=== PATIENT | female | born 1945 | race Caucasian/White ===

== ENCOUNTER 2021-11-01 09:56 | Day surgery (SDC) | payer MEDICARE ==
[2021-11-01] MEDS ORDERED: fentaNYL 100 MCG/2 ML SDV ONE (10:23)
[2021-11-01] MEDS ORDERED: Propofol 200 MG/20 ML SDV ONE (10:24)
[2021-11-01] MEDS ORDERED: Midazolam 1 MG/ML 2 ML SDV ONE (10:24)
[2021-11-01] MEDS ORDERED: Lactated Ringers 1,000 ML IV SCH (10:30)
== END 2021-11-01 13:49 | disposition home or self-care (01) ==
LOC: JP.SDS 09:56
PROVIDERS: ATTEND Family Medicine
DX: Z12.11 Encounter for screening for malignant neoplasm of colon (principal); I10 Essential (primary) hypertension; E78.5 Hyperlipidemia, unspecified; K58.9 Irritable bowel syndrome, unspecified; Z98.890 Other specified postprocedural states; Z88.0 Allergy status to penicillin; Z88.8 Allergy status to other drugs, medicaments and biological substances; Z79.83 Long term (current) use of bisphosphonates; Z79.891 Long term (current) use of opiate analgesic; Z79.899 Other long term (current) drug therapy; Z20.822 Contact with and (suspected) exposure to COVID-19
CPT/HCPCS: G0121; J2704; J3010; J7120; J2250

== ENCOUNTER 2022-12-20 18:49 | Emergency (ER) | payer MEDICARE | END 2022-12-20 21:04 | disposition home or self-care (01) | LOC: JP.ED 18:49 | DX: S05.11XA Contusion of eyeball and orbital tissues, right eye, initial encounter (principal); S09.90XA Unspecified injury of head, initial encounter; Z88.0 Allergy status to penicillin; Z88.8 Allergy status to other drugs, medicaments and biological substances; Z79.82 Long term (current) use of aspirin; Z79.899 Other long term (current) drug therapy; W01.0XXA Fall on same level from slipping, tripping and stumbling without subsequent striking against object, initial encounter | CPT/HCPCS: 70450; 70486; 99283 ==